=== PATIENT | female | born 1995 | race Caucasian/White ===

== ENCOUNTER 2018-12-02 00:13 | Emergency (ER) | payer SELFPAY ==
[~2018-12-02] VITALS: Ht 157.5 cm; Wt 73.1 kg
[~2018-12-02 00:13] MED LIST: AMIT25TA9 PO; FLUT16SP24 NASAL; LORA10TA3 PO; MULT-552 PO; ONDA4TAB8 PO; VAL2 PO
[2018-12-02 00:19] VITALS: Ht 157.5 cm; Wt 73.1 kg
--- NOTE | 2018-12-02 01:06 | ERD ---
ER Documentation Chief Complaint Chief Complaint WEAKNESS, DIZZINESS X'S 2 HOURS HPI Patient is a 22 years old 6 weeks female with no known past medical history presenting to the clinic for weakness 2 hours. She reports weakness and shakiness came about while she was trying to go to bed. Patient denied room spinning or sensation of movement. Patient is requesting finger glucose check as she is worried that she might have low sugar. Patient admits to having adequate nutrition intake. Patient denies all ROS. Patient denies vaginal bleeding, abdominal/suprapubic pain. ROS All systems reviewed and are negative except as per history of present illness. Medications Home Meds Active Scripts Ondansetron Hcl* (Zofran*) 4 Mg Tablet, 4 MG PO Q8H PRN for NAUSEA AND/OR VOMITING, #10 TAB Prov:LUCI OROSCO DO 06/27/15 Amitriptyline Hcl* (Amitriptyline Hcl*) 25 Mg Tablet, 25 MG PO HS, #30 TAB Prov:ROBBI GRANGER NP 05/25/15 Multivitamins* (Once Daily*) 1 Tab Tablet, 1 TAB PO DAILY, #120 TAB Prov:ROBBI GRANGER TODDLER GUIDE 05/25/15 Reported Medications Fluticasone Propionate* (Flonase* Nasal) 50 Mcg/[place] - 16 Gm [place].susp, 2 SPRAY NASAL DAILY, SPRAY TO EACH NOSTRIL 07/21/14 Loratadine* (Loratadine*) 10 Mg Tablet, 10 MG PO DAILY, TAB 07/21/14 Diazepam* (Valium*) 2 Mg Tab, 2 MG PO DAILY PRN for ANXIETY, TAB 07/21/14 Allergies Allergies: Coded Allergies: diphenhydramine (Verified Allergy, Unknown, 12/02/18) PMhx/Soc Medical and Surgical Hx: pt denies Medical Hx, pt denies Surgical Hx History of Surgery: No Anesthesia Reaction: No Hx Neurological Disorder: No Hx Respiratory Disorders: No Hx Cardiac Disorders: No Hx Psychiatric Problems: Yes (phobias and depression) Hx Miscellaneous Medical Probl: No Hx Alcohol Use: No Hx Substance Use: No Hx Tobacco Use: No Smoking Status: Never smoker FmHx Family History: No diabetes, No coronary disease, No other Physical Exam Vitals Vital Signs Date Temp Pulse Resp B/P (MAP) Pulse Ox O2 O2 Flow FiO2 Time Delivery Rate 12/02/18 98.1 85 18 122/60 100 00:19 (80) Physical Exam Const: No acute distress Head: Atraumatic Eyes: Normal Conjunctiva ENT: Normal External Ears, Nose and Mouth. Neck: Full range of motion. No meningismus. Resp: Clear to auscultation bilaterally Cardio: Regular rate and rhythm, no murmurs Abd: Soft, non tender, non distended. Normal bowel sounds Ext: No cyanosis, or edema Neur: Awake and alert Psych: Normal Mood and Affect Results 24 hrs Laboratory Tests Test 12/02/18 00:18 Bedside Glucose 91 mg/dL Procedures/MDM Patient was seen and evaluated for weakness. Patient was informed that she is mostly having anxiety attack is not requiring no further work-up. Patient requested finger glucose check provider respected her wish. Finger glucose stick is 91. Patient is stable and ready for discharge. Departure Diagnosis: Primary Impression: Weakness Condition: Stable Patient Instructions: Generalized Weakness Referrals: [facility] Additional Instructions: Patient advised to return to the ED immediately for new or worsening symptoms. Patient advised to follow up with primary care provider in the next 24-48 hours. Patient verbalized understanding and agrees with treatment plan and course of action. If patient has no primary care they may follow up with [facility] [address] [place] [phone] or [facility] [address] [place] [address] or [facility] [address] [place] [address] SHADY SMITH PA-C Dec 02, 2018 01:06
[2018-12-02 01:56] VITALS: BP 104/67; PULSE 71; RESP 16
== END 2018-12-02 01:57 | disposition home or self-care (01) ==
LOC: FTE 00:13
DX: O99.89 Other specified diseases and conditions complicating pregnancy, childbirth and the puerperium (principal); R53.1 Weakness; Z3A.01 Less than 8 weeks gestation of pregnancy
CPT/HCPCS: 82962; 99282

== ENCOUNTER 2019-02-17 01:10 | Emergency (ER) | payer SELFPAY ==
[~2019-02-17] VITALS: Ht 154.9 cm; Wt 72.2 kg
[2019-02-17 01:12] VITALS: BP 99/63; PULSE 76; RESP 18; Ht 154.9 cm; Wt 72.2 kg
== END 2019-02-17 01:39 | disposition home or self-care (01) ==
LOC: FTE 01:10
DX: O99.342 Other mental disorders complicating pregnancy, second trimester (principal); F41.9 Anxiety disorder, unspecified; R06.02 Shortness of breath; Z3A.17 17 weeks gestation of pregnancy
CPT/HCPCS: 93005